=== PATIENT | female | born 1945 | race Caucasian/White ===

== ENCOUNTER 2016-07-19 14:10 | Outpatient (CLI) | payer OTHER ==
[2015-12-22 13:58] VITALS: BMI 28.3
--- NOTE | 2016-07-19 14:45 | DI ---
EXAM: Lumbar spine five views HISTORY: Disc degeneration COMPARISON: 07/22/2013 TECHNIQUE: Five views lumbar spine were performed including oblique views FINDINGS: Sacroiliac joints intact. Sacral arcuate lines intact. Vertebral bodies normal in heigh t. No fracture. Multilevel marginal osteophyte formation. Moderate intervertebral space narrowing L4-L5. Multilevel facet arthrosis, greatest in the lower lumbar spine. 4 mm anterolisthesis of L4 on L5 and 4 mm anterolisthesis of L5 on S1 atherosclerotic vascular calcification IMPRESSION: Chronic discogenic degenerative disease and facet arthrosis with 4 mm anterolisthesis o f L4 on L5 and L5 on S1
== END 2016-07-19 14:11 | disposition home or self-care (01) ==
LOC: RAD 14:10
PROVIDERS: ATTEND Pain Medicine Interventional Pain Medicine
DX: M51.26 Other intervertebral disc displacement, lumbar region (principal); M51.27 Other intervertebral disc displacement, lumbosacral region; M47.816 Spondylosis without myelopathy or radiculopathy, lumbar region; M47.817 Spondylosis without myelopathy or radiculopathy, lumbosacral region; M48.06 Spinal stenosis, lumbar region; M51.36 Other intervertebral disc degeneration, lumbar region; M51.37 Other intervertebral disc degeneration, lumbosacral region

== ENCOUNTER 2018-03-18 10:22 | Emergency (ER) | payer OTHER ==
[2018-03-18 10:38] VITALS: BP 155/76; TEMP 99.3; BMI 31.1
--- NOTE | 2018-03-18 11:08 | ED.PDOC ---
General ED Provider: Dr. ANDERSON POPE Chief Complaint: Chest Wall Injury/Pain Stated Complaint: Chest wall pain. Fell two weeks ago when collecting firewood- landed against side of trailer injuring lt side of chest wall. Was loading wood onto wagon and turned after placing wood on the load then tripped over wagon--landed onto left side and has pain to left ribs/chest since--tender to area--pain worsens if lays onto left side. Denies LOC, dyspnea or and crepitance. Pain in LT LAT COSTAL REGION. Time Seen by Physician: 11:00 Mode of Arrival: Walk-In Information Source: Patient Exam Limitations: No limitations Primary Care Provider: BRYAN BALLESTEROS Nursing and Triage Documentation Reviewed and Agree: Yes Does patient meet sepsis criteria?: No System Inflammatory Response Syndrome: Not Applicable Sepsis Protocol: For patient's 13 years and over: Temp is 96.8 and below OR 101 and greater Pulse >90 BPM Resp >20/minute Acutely Altered Mental Status Are patient's symptoms suggestive of a new infection, such as: -Pneumonia -Skin, Soft Tissue -Endocarditis -UTI -Bone, Joint Infection -Implantable Device -Acute Abdominal Infection -Wound Infection -Meningitis -Blood Stream Catheter Infection -Unknown Musculoskeletal Complaint Exam - Back Pain Complaint/Exam Mechanism of Injury: Reports: Trauma Onset/Duration: 2 wweeks Symptoms Are: Still present Timing: Constant Episodes Lasting: Minutes Initial Severity: Moderate Current Severity: Mild Location: Reports: Diffuse Character: Reports: Sharp, Aching Aggravating: Reports: None, Lifting, Bending, Walking, Cough Alleviating: Reports: Rest Associated Signs and Symptoms: Denies: Swelling, Redness, Bruising, Fever, Weakness, Numbness, Tingling, Abdominal pain, Flank pain, Bladder incontinence, Bowel incontinence, Weight loss, Pain with weight bearing TAD Risk Factors: Reports: None AAA Risk Factors: Reports: None Cauda Equina Risk Factors: Reports: None Related Surgical History: Reports: None Focal Tenderness: Yes (over intercostal region -inframammary and lateral costal) Paraspinal Muscle Tenderness: No Paraspinal Muscle Spasm: No Scoliosis: No Lordosis: No Kyphosis: No SLR Test: Right Negative, Left Negative Hip Motion Testing Pain: Right Negative, Left Negative Focal Weakness: Present: None Focal Sensory Loss: Present: None Gait: Present: Normal Differential Diagnoses: Other (Intercostal strain and contusion ) Review of Systems - Review Of Systems Constitutional: Reports: No symptoms Eyes: Reports: No symptoms Ears, Nose, Mouth, Throat: Reports: No symptoms Respiratory: Reports: No symptoms Cardiac: Reports: No symptoms GI: Reports: No symptoms : Reports: No symptoms Musculoskeletal: Reports: No symptoms, Muscle pain, Muscle stiffness Skin: Reports: No symptoms Neurological: Reports: No symptoms Endocrine: Reports: No symptoms Hematologic/Lymphatic: Reports: No symptoms All Other Systems: Reviewed and Negative Past Medical History - Past Medical History Endocrine: Reports: Dyslipidemia Cardiovascular: Reports: CAD (stent palcement 5 years ago ), CA, Hypertension Respiratory: Reports: None Hematological: Reports: None Gastrointestinal: Reports: GERD Genitourinary: Reports: None Neuro/Psych: Reports: None, Depression Musculoskeletal: Reports: Arthritis Cancer: Reports: None Last Menstrual Period: menpause Other Pertinent Past Medical History: Back pain , back and nerve pain - Surgical History General Surgical History: Reports: Hysterectomy, Pacemaker - Family History Family History: Reports: Unknown - Social History Smoking Status: Current every day smoker, Light tobacco smoker Hx Substance Use: No Alcohol Screening: None Physical Exam - Physical Exam Appearance: Well-appearing, No pain distress, Well-nourished Ill-appearing: None Pain Distress: Moderate Eyes: DAVID, EOMI, Conjunctiva clear ENT: Ears normal, Nose normal, Oropharynx normal Respiratory: Airway patent, Breath sounds clear, Breath sounds equal, Respirations nonlabored Cardiovascular: RRR, Pulses normal, No rub, No murmur GI/: Soft, Nontender, No masses, Bowel sounds normal, No Organomegaly Musculoskeletal: Normal strength, ROM intact, No edema, No calf tenderness, Limited ROM (pain to left ribs/chest since.tender to area.pain worsens if lays onto left side and moves about.) Skin: Warm, Dry, Normal color Neurological: Sensation intact, Motor intact, Reflexes intact, Cranial nerves intact, Alert, Oriented Psychiatric: Affect appropriate, Mood appropriate Critical Care Note - Critical Care Note Total Time (mins): 0 Course - Course Orders, Labs, Meds: Orders Category Date Time Status RIBS, W/PA CHEST LEFT Stat RADS 03/18/18 11:12 Completed Vital Signs: Temp Pulse Resp BP Pulse Ox 03/18/18 10:22 99.3 F 82 16 155/76 H 95 Departure - Departure Time of Disposition: 12:10 Disposition: HOME SELF-CARE Discharge Problem: Contusion of left chest wall, Contusion of ribs Instructions: Rib Contusion (ED) Condition: Fair Pt referred to PMD for follow-up: Yes (1 week) IPMP verified?: No Additional Instructions: Ice to area of discomfort Take meds as directed Avoid strenuous activity Follow up pcp in next week Prescriptions: Tramadol HCl 50 mg PO QID #15 tablet Allergies/Adverse Reactions: Allergies morphine Adverse Reaction (Verified 03/18/18 10:32) Home Medications: Ambulatory Orders Aspirin [Aspirin EC] 81 mg PO DAILY 01/19/15 Clopidogrel Bisulfate [Plavix] 75 mg PO DAILY 01/19/15 Duloxetine HCl [Cymbalta] 90 mg PO DAILY 01/19/15 Gabapentin [Neurontin] 600 mg PO QID 01/19/15 Lansoprazole [Prevacid] 30 mg PO DAILY 01/19/15 Levothyroxine Sodium [Synthroid] 112 mcg PO DAILY 01/19/15 Metoprolol Succinate 25 mg PO DAILY 01/19/15 Atorvastatin Calcium 40 mg PO DAILY 03/18/18 Tramadol HCl 50 mg PO QID #15 tablet 03/18/18 Disposition Discussed With: Patient, Family
--- NOTE | 2018-03-18 11:43 | DI ---
EXAM: Chest frontal view, left ribs three views HISTORY: Fall 3 weeks ago, pain. FINDINGS: No acute fracture is seen. Heart size is prominent. There is atherosclerotic disease and a pacemaker unit. Chronic-appearing interstitial changes with no vascular congestion or consolidated pneumonia. No pneumothorax or pleural fluid. IMPRESSION: 1. No acute injuries identified.
== END 2018-03-18 12:05 | disposition home or self-care (01) ==
LOC: ED 10:22
DX: S20.212A Contusion of left front wall of thorax, initial encounter (principal); W01.0XXA Fall on same level from slipping, tripping and stumbling without subsequent striking against object, initial encounter; F17.210 Nicotine dependence, cigarettes, uncomplicated
CPT/HCPCS: 99283